=== PATIENT | female | born 1965 | race Caucasian/White ===

== ENCOUNTER → 2020-04-13 13:25 | Outpatient (CLI) | payer OTHER, SELFPAY ==
--- NOTE | ~2020-04-13 | DEXA_ITS ---
Bone Density Report Name: Faye Rowe Age: 54 Sex: Female Ethnicity: White Date of : 1965 Indication: postmenopausal osteoporosis; hysterectomy; Referring Provider: Cristi Taveras Study: Bone densitometry was performed. Exam Date: April 13, 2020 Accession number: [id number] Bone Density: Region BMD T-score Z-score Classification AP Spine (L1-L4) 0.751 -2.7 -1.6 Osteoporosis Femoral Neck (Left) 0.579 -2.4 -1.4 Osteopenia Total Hip (Left) 0.734 -1.7 -1.0 Osteopenia Femoral Neck (Right) 0.661 -1.7 -0.7 Osteopenia Total Hip (Right) 0.752 -1.6 -0.9 Osteopenia Total Hip Mean 0.743 -1.7 -1.0 Osteopenia World Health Organization criteria for BMD impression classify patients as: Normal (T-score at or above -1.0), Osteopenia (T-score between -1.0 and -2.5), or Osteoporosis (T-score at or below -2.5). 10-year Fracture Risk: FRAX not reported because: Some T-score for Spine Total or Hip Total or Femoral Neck at or below -2.5 Previous Exams: Region Exam Age BMD T-score BMD Change BMD Change Date g/cm2 vs Baseline vs Previous AP Spine(L1-L4) 04/13/2020 54 0.751 -2.7 -0.025* -0.025* 11/16/2015 50 0.776 -2.5 Total Hip(Left) 04/13/2020 54 0.734 -1.7 0.014 0.014 11/16/2015 50 0.720 -1.8 Total Hip(Right) 04/13/2020 54 0.752 -1.6 -0.008 -0.008 11/16/2015 50 0.760 -1.5 *Denotes significance at 95% confidence level, LSC for AP Spine = 0.022 g/cm2, LSC for Total Hip = 0.027 g/cm2 Clinical Information Provided by Patient: Has the following medical conditions: Hysterectomy Patient maximum height was 63 Menopause Age: 45 No regular weight bearing exercise Drinks caffeinated beverages Onset of menses at age 13 Number of children 2 Impression: The patient has osteoporosis, based on the Total Spine T-score. The BMD for the AP Spine(L1-L4) decreased, changing by -0.025 since the last DXA exam. Discussion: INCREASED RISK OF FRACTURE. BONE DENSITY IS UNDESIRABLY LOW AT ONE OR MORE SKELETAL SITES, CONSISTENT WITH POSTMENOPAUSAL OSTEOPOROSIS. This patient's lowest T-score meets the World Health Organization's (WHO) criteria for osteoporosis at one or more sites (T-score -2.5 or below). In untreated patients, the risk of osteoporotic fracture increases approximately two-fold for each 1.0 SD decrease in T-score. Low bone density is not the only risk factor for fracture; also consider factors such a
== END ==
PROVIDERS: PCP Family Medicine; Visit Provider Family Medicine
DX: N95.1 Menopausal and female climacteric states (principal); M81.0 Age-related osteoporosis without current pathological fracture; M16.0 Bilateral primary osteoarthritis of hip
CPT/HCPCS: 77080

== ENCOUNTER → 2020-11-25 15:33 | Outpatient (CLI) | payer OTHER, SELFPAY ==
--- NOTE | ~2020-11-25 | XR_ITS ---
EXAMINATION: XR foot LT 2V, XR toe 1st LT min 2V DATE: 11/25/2020 15:55 INDICATION: Left great toe pain and swelling at the metatarsophalangeal joint. TECHNIQUE: 1. Dorsoplantar and lateral views of the left foot were obtained. 2. Dorsal plantar, oblique and lateral views of the left great toe were obtained. COMPARISON: None. FINDINGS: Alignment is normal. No fracture. Polyarticular osteoarthritis, moderate severity at the left first m etatarsophalangeal and second distal interphalangeal joint, mild to moderate at the calcaneocuboid glenroy int and mild at multiple tarsal metatarsal and remaining interphalangeal joints. No cortical erosions or periosteal reaction. Soft tissues are unremarkable. IMPRESSION: 1. Mild to moderate polyarticular osteoarthritis in the left foot most prominent at the first metatar sophalangeal and second distal interphalangeal joints. Reviewed, dictated and finalized at location A. IMPRESSION: 1. Mild to moderate polyarticular osteoarthritis in the left foot most prominen t at the first metatarsophalangeal and second distal interphalangeal joints.
== END ==
PROVIDERS: PCP Family Medicine; Visit Provider Physician Assistant
DX: M79.675 Pain in left toe(s) (principal); M19.072 Primary osteoarthritis, left ankle and foot
CPT/HCPCS: 73620; 73660

== ENCOUNTER 2021-06-11 00:30 | Day surgery (SDC) | payer OTHER, SELFPAY ==
[2021-05-27 13:24] VITALS: BMI 25.0
--- NOTE | 2021-06-10 16:28 | PM.HPGS ---
History of Present Illness History of Present Illness Consent: Risks, benefits, and alternatives have been discussed and questions answered. Patient agrees to proceed with procedure. Chief complaint: hx of colon polyps, neoplasm screening Narrative: Faye Rowe is a 55 year old female referred for colon cancer screening. She had an adenomatous polyp removed 5 years ago Review of Systems Review of Systems: All systems reviewed & are unremarkable except as noted in HPI and below PMFSH Past Medical History Medical History Arthritis Mixed hyperlipidemia Family History Family History Father Hypertension Mother Hypertension Family history of macular degeneration Sibling Hypertension Social History Social History Smoking status: Former smoker Tobacco type: cigarettes Second hand tobacco smoke exposure: No Smoking end date: 04/17/90 Alcohol intake: current Drinks per week: 1 Substance use: never Substance use type: does not use Living arrangements: with family Gender identity (if verbalized by the patient): Female Spiritual care concerns: No Meds Home Medications and Allergies Home Medications Medication Instructions Recorded Confirmed Type paroxetine HCl 20 mg tablet 20 mg PO DAILY 03/11/19 05/27/21 History rosuvastatin 10 mg tablet 10 mg PO DAILY #90 tablet 02/24/21 05/27/21 Rx Allergies Allergy/AdvReac Type Severity Reaction Status Date / Time No Known Allergies Allergy unk Uncoded 06/11/21 10:10 Exam Resp: Auscultation: clear to auscultation bilaterally Cardio: Rate: regular rate Rhythm: regular rhythm GI: GI Palp: Yes Soft to palpation and No Tenderness to palpation present (GI) Assessment and Plan Assessment and plan (1) Colon cancer screening: Code(s): Z12.11 - Encounter for screening for malignant neoplasm of colon Status: Acute Assessment and Plan: Colonoscopy with possible biopsy or polypectomy or cautery or injection of substances.
[2021-06-11 10:11] VITALS: BP 126/75; PULSE 97; RESP 16; TEMP 37; O2SAT 100
[2021-06-11] MEDS: LACTATED RINGERS 1,000 ML 150 ML IV CONT (10:20)
--- NOTE | 2021-06-11 10:24 | WPDANESEPPF ---
Anes - Initial Pre Proc Eval Procedure: Operation Date: 06/11/21 11:00 Proposed Procedures p Screening Colonoscopy - Ricardo Haque MD Date/Time: 06/11/21 10:24 Surgeon: Ricardo Haque MD Pre Op Diagnosis: hx of colon polyps, neoplasm screening Patient Data Age: 55 Gender: F Height: 1.6 m Weight: 67.1 kg Last Vital Signs Temp 37.0 C 06/11/21 10:11 Pulse 97 06/11/21 10:11 Resp 16 06/11/21 10:11 BP 126/75 06/11/21 10:11 Pulse Ox 100 06/11/21 10:11 Allergies Allergy/AdvReac Type Severity Reaction Status Date / Time No Known Allergies Allergy unk Uncoded 06/11/21 10:10 Home Medications Medication Instructions Recorded Confirmed Type paroxetine HCl 20 mg tablet 20 mg PO DAILY 03/11/19 05/27/21 History rosuvastatin 10 mg tablet 10 mg PO DAILY #90 tablet 02/24/21 05/27/21 Rx Patient hx anesthesia problems: none Family hx anesthesia problems: none Results Review: All pre-operative results and documents have been reviewed as part of the pre-operative evaluation. [facility] Past Medical History Medical History Arthritis Mixed hyperlipidemia Family History Family History Father Hypertension Mother Hypertension Family history of macular degeneration Sibling Hypertension Social History Social History Smoking status: Former smoker Tobacco type: cigarettes Second hand tobacco smoke exposure: No Smoking end date: 04/17/90 Alcohol intake: current Drinks per week: 1 Substance use: never Substance use type: does not use Living arrangements: with family Gender identity (if verbalized by the patient): Female Spiritual care concerns: No Anes - Eval Final PreProcedure Day of Procedure 06/11/21 10:24 Patient weight: normal Heart: regular rate and rhythm Lungs: clear to auscultation Airway: Mallampati scale class II Neurological: alert and oriented Last oral intake: >/= 8 hours ASA classification: II Emergent: no Anesthetic plan: proceed Anesthesia type and monitoring: general GIVS and standard monitoring Results Review: All pre-operative results and documents have been reviewed as part of the pre-operative evaluation. Informed Consent: The patient's anesthetic plan and its attendant risks and benefits were discussed with the patient/family/POA. Questions were solicited and answers provided to the satisfaction of the patient/family/POA.
[2021-06-11 11:17] VITALS: BP 84/48; PULSE 83; RESP 23; O2SAT 97
[2021-06-11 11:27] VITALS: BP 96/62; PULSE 79; RESP 16; O2SAT 99
[2021-06-11 11:37] VITALS: BP 110/69; PULSE 76; RESP 16; O2SAT 99
== END 2021-06-11 11:56 | disposition home or self-care (01) ==
PROVIDERS: PCP Family Medicine; Visit Provider Internal Medicine Gastroenterology
PROC: 0DJD8ZZ Inspection of Lower Intestinal Tract, Via Natural or Artificial Opening Endoscopic (ICD-10-PCS; CPT 45378; principal; 2021-06-11 11:00)
DX: Z12.11 Encounter for screening for malignant neoplasm of colon (principal); Z86.010 Personal history of colon polyps; K64.8 Other hemorrhoids; M19.90 Unspecified osteoarthritis, unspecified site; E78.2 Mixed hyperlipidemia; Z87.891 Personal history of nicotine dependence
CPT/HCPCS: 45378; J2704; J7120

== ENCOUNTER → 2021-06-17 10:14 | Outpatient (CLI) | payer OTHER, SELFPAY ==
--- NOTE | ~2021-06-17 | MM_ITS ---
EXAMINATION: MM screening [facility] BI w lexie HISTORY: Screening mammogram TECHNIQUE: Craniocaudal and mediolateral oblique 3-D tomosynthesis images were obtained and synthetic 2-D images were generated. CAD analysis was submitted and interpreted. COMPARISON: 01/26/2018, 11/13/2012, 06/09/2009 BREAST PARENCHYMAL COMPOSITION: The breasts are heterogeneously dense, which may obscure small masses . FINDINGS: There is no evidence of suspicious mass, calcification, or architectural distortion to sugg est malignancy in either breast. There has been no suspicious interval change. IMPRESSION: 1. No mammographic evidence of malignancy. 2. Recommend routine screening mammography in one year. BI-RADS Category 1: Negative Reviewed, dictated and finalized at location A. CHECKER
== END ==
PROVIDERS: Visit Provider Advanced Practice Midwife
DX: Z12.31 Encounter for screening mammogram for malignant neoplasm of breast (principal)
CPT/HCPCS: 77063; 77067

== ENCOUNTER 2021-12-15 11:12 | Emergency (ER) | payer OTHER, SELFPAY ==
--- NOTE | ~2021-12-15 | XR_ITS ---
XR finger 2nd LT min 2V DATE: 12/15/2021 12:39 INDICATION: Laceration, injury at distal second digit TECHNIQUE: AP and lateral views COMPARISON: 11/27/2015 left FINDINGS: Distal lateral soft tissue laceration. No radiopaque soft tissue foreign body. No fracture or dislocation, periosteal reaction or bone destruction. Mild osteoarthritis at the distal interphalangeal joint. There is osteoarthritic change at the first carpometacarpal joint and mild osteophyte is at first and third metacarpophalangeal joints. IMPRESSION: Distal lateral second digit soft tissue laceration; no radiopaque foreign body No fracture or dislocation Polyarticular osteoarthritis Reviewed, dictated and finalized at location B. IMPRESSION: Distal lateral second digit soft tissue laceration; no radiopaque f oreign body No fracture or dislocation Polyarticular osteoarthritis
[2021-12-15 11:29] VITALS: BP 130/82; PULSE 104; RESP 18; TEMP 36.5; O2SAT 98
--- NOTE | 2021-12-15 11:40 | ED.WOUNDLAC ---
HPI - Wound/Laceration General Chief Complaint: Wound/Laceration Stated Complaint: left index finger cut with yard tool Time Seen by Provider: 12/15/21 11:40 Source: patient and family Mode of arrival: ambulatory Limitations: no limitations History of Present Illness HPI narrative: The patient is a 56-year-old female presenting to the emergency department for evaluation of left second finger laceration. Patient states that she was cutting weeds at home, and has no idea how her finger became lacerated, but suspects the tool she was using must have slipped. Patient was wearing gloves. She believes she is up-to-date on her tetanus within the last 5 to 10 years but is not 100% sure. She denies any numbness or weakness. She is right-hand dominant. She reports mild burning pain at the site that is worse when she bends her finger. Patient denies other injury, lacerations or wrist pain. Related Data Home Medications Medication Instructions Recorded Confirmed paroxetine HCl 20 mg tablet (Paxil) 20 mg PO DAILY 03/11/19 07/30/21 Allergies Allergy/AdvReac Type Severity Reaction Status Date / Time No Known Allergies Allergy unk Uncoded 12/15/21 11:31 [facility] Past Medical History Medical History Arthritis Mixed hyperlipidemia Family History Family History Father Hypertension Mother Hypertension Family history of macular degeneration Sibling Hypertension Social History Social History Smoking status: Former smoker Tobacco type: cigarettes Second hand tobacco smoke exposure: No Smoking end date: 04/17/90 Alcohol intake: current Drinks per week: 1 Substance use: never Substance use type: does not use Gender identity (if verbalized by the patient): Female Spiritual care concerns: No Course Vital Signs Vital signs: Vital Signs Temperature 36.5 C 12/15/21 11:29 Pulse Rate 104 H 12/15/21 11:29 Respiratory Rate 18 12/15/21 11:29 Blood Pressure 130/82 12/15/21 11:29 Pulse Oximetry 98 12/15/21 11:29 Oxygen Delivery Room Air 12/15/21 11:29 Temperature 36.5 C 12/15/21 11:29 Pulse Rate 104 H 12/15/21 11:29 Respiratory Rate 18 12/15/21 11:29 Blood Pressure 130/82 12/15/21 11:29 Pulse Oximetry 98 12/15/21 11:29 Oxygen Delivery Room Air 12/15/21 11:29 Procedures Laceration Laceration 1: Date: 12/15/21 Time: 13:10 Site: other (left second digit) Side (If applicable): left Size (cm): 1 Description: irregular Depth: simple, single layer Local Anesthetic: lidocaine 1% Amount of anesthesia used (mL): 3 Pre-repair: irrigated extensively ====== Skin Level ====== Skin layer closed with: prolene Size (cm): 5-0 Number of sutures: 4 Technique: simple, interrupted ====== Subcutaneous Layer ====== ====== Muscle Layer ====== ====== Tendon Layer ====== MDM - Wound/Laceration MDM Narrative Medical decision making narrative: Patient presenting for evaluation of left finger pain with laceration to distal left finger. Patient is neurovascularly intact. There had to be some revisions made to wound edges. Otherwise, no deep tissue involvement. Radiographic imaging is reassuring. Wound was irrigated extensively. Sutures were placed. Tetanus was updated. Discharged home with splint for protection, wound care instructions. Differential Diagnosis Differential diagnosis: Likely laceration, avulsion of skin and other (fracture, dislocation) Medical Records Attestation: I reviewed the patient's medical records. Imaging Data Radiologist's impression: ITS Impressions Finger X-Ray 12/15/21 12:46 IMPRESSION: Distal lateral second digit soft tissue laceration; no radiopaque foreign body No fractur
[2021-12-15] MEDS: TETANUS,DIPHTHERIA,AC PERTUSSIS ADULT (0.5 ML) BOOSTRIX IM (13:05)
[2021-12-15 13:24] VITALS: BP 150/98; PULSE 79; RESP 16; O2SAT 99
== END 2021-12-15 13:25 | disposition home or self-care (01) ==
PROVIDERS: Emergency Provider Emergency Medicine; PCP Family Medicine
DX: S61.211A Laceration without foreign body of left index finger without damage to nail, initial encounter (principal); Z23 Encounter for immunization; E78.2 Mixed hyperlipidemia; Z87.891 Personal history of nicotine dependence; M19.042 Primary osteoarthritis, left hand; W27.1XXA Contact with garden tool, initial encounter; Y93.H2 Activity, gardening and landscaping
CPT/HCPCS: 12001; 73140; 90471; 90715; 99283

== ENCOUNTER 2022-03-29 09:58 | Outpatient (CLI) | payer OTHER, SELFPAY ==
--- NOTE | ~2022-03-29 | DEXA_ITS ---
Bone Density Report Name: TOD CLANCY Age: 56 Sex: Female Ethnicity: White Date of : 1965 Indication: postmenopausal; screening for osteoporosis; hysterectomy; Referring Provider: JORGE AUGUSTIN Study: Bone densitometry was performed. Exam Date: March 29, 2022 Accession number: [id number] Bone Density: Region BMD T-score Z-score Classification AP Spine(L1-L4) 0.837 -1.9 -0.7 Osteopenia Femoral Neck (Left) 0.603 -2.2 -1.1 Osteopenia Total Hip (Left) 0.800 -1.2 -0.4 Osteopenia Femoral Neck (Right) 0.731 -1.1 0.1 Osteopenia Total Hip (Right) 0.831 -0.9 -0.1 Normal Total Hip Mean 0.816 -1.1 -0.3 Osteopenia World Health Organization criteria for BMD impression classify patients as: Normal (T-score at or above -1.0), Osteopenia (T-score between -1.0 and -2.5), or Osteoporosis (T-score at or below -2.5). 10-year Fracture Risk(1): Major Osteoporotic Fracture 8.8% Hip Fracture 1.2% Reported Risk Factors: [place] (), Neck BMD=0.603, BMI=27.2 (1) FRAX(R) Version 3.08. Fracture probability calculated for an untreated patient. Fracture probability may be lower if the patient has received treatment. Clinical Information Provided by Patient: Has used the following medications: Prolia (i.e. denosumab), Calcium Has the following medical conditions: Hysterectomy Patient maximum height was 63.5 Menopause Age: 46 No regular weight bearing exercise Drinks caffeinated beverages Onset of menses at age 12 Number of children 2 Impression: The patient has low bone mass, based on the Left Femoral Neck T-score. The patient has an estimated ten-year risk of hip fracture of 1.2% and an estimated ten-year risk of major fracture of 8.8%, based on the WHO FRAX algorithm. Discussion: BONE DENSITY IS LOW AT ONE OR MORE SKELETAL SITES. This patient's lowest T-score is low at one or more skeletal sites. It meets the World Health Organization's (WHO) criteria for ?low bone mass? (T-score between -1.0 and -2.5). The patient's 10-year risk of fracture as calculated by FRAX is less than the threshold where pharmacological therapy is recommended by the National Osteoporosis Foundation (NOF). However, all treatment decisions require clinical judgment and consideration of individual patient factors, including patient preferences, comorbidities, previous drug use, risk factors not captured in the FRAX model (e.g., frailty, falls, vitamin D deficiency, increased bone turnover, interval significant decline in bone density) and possible under or overestimation of fracture risk by FRAX. The patient should follow a healthful lifestyle (good nutrition with adequate calcium and vitamin D, and appropriate weight-bearing exercise). Follow-Up: Consider repeating this study in 2 to 3 years to reassess th
== END 2022-03-29 09:59 | disposition home or self-care (01) ==
PROVIDERS: PCP Family Medicine; Visit Provider Family Medicine
DX: Z78.0 Asymptomatic menopausal state (principal); M85.89 Other specified disorders of bone density and structure, multiple sites
CPT/HCPCS: 77080

== ENCOUNTER 2022-06-07 14:54 | Outpatient (CLI) | payer OTHER, SELFPAY ==
--- NOTE | ~2022-06-07 | XR_ITS ---
EXAMINATION: XR chest 2V Exam Date/Time: 06/07/2022 15:00 ANALYTICAL LABORATORY TECHNICIAN HISTORY: R05.9 - Cough, F/U PNEUMONIA Comparison: None available. RESULT: Lines, tubes, and devices: None. Lungs and pleura: Calcified pulmonary granulomas. Mild biapical pleural scarring and hilar retractio n. Cardiomediastinal silhouette: Calcified hilar and mediastinal lymph nodes. Other: No acute osseous or upper abdominal finding. IMPRESSION: No acute cardiopulmonary process. Reviewed, dictated and finalized at location K. YTICAL LABORATORY TECHNICIAN
== END 2022-06-07 14:55 | disposition home or self-care (01) ==
LOC: ANHIMG 14:59
PROVIDERS: PCP Family Medicine; Visit Provider Physician Assistant
DX: R50.9 Fever, unspecified (principal); R05.9 Cough, unspecified
CPT/HCPCS: 71046

== ENCOUNTER 2024-01-16 14:13 | Outpatient (CLI) | payer OTHER, SELFPAY ==
--- NOTE | ~2024-01-16 | MM_ITS ---
EXAMINATION: MM screening [facility] BI w lexie HISTORY: Screening TECHNIQUE: Craniocaudal and mediolateral oblique 3-D tomosynthesis images were obtained and synthetic 2-D images were generated. CAD analysis was submitted and interpreted. COMPARISON: Comparison to multiple prior studies sequentially, with oldest reviewed study dated 01/15. BREAST PARENCHYMAL COMPOSITION: Not dense: There are scattered areas of fibroglandular density. FINDINGS: There are benign-appearing left breast calcifications. There is no evidence of suspicious m ass, calcification, or architectural distortion to suggest malignancy in either breast. There has bee n no suspicious interval change. IMPRESSION: 1. No mammographic evidence of malignancy. 2. Recommend routine screening mammography in one year. BI-RADS Category 1: Negative Reviewed, dictated and finalized at location B.
== END 2024-01-16 14:14 | disposition home or self-care (01) ==
PROVIDERS: PCP Family Medicine; Visit Provider Nurse Practitioner Obstetrics & Gynecology
DX: Z12.31 Encounter for screening mammogram for malignant neoplasm of breast (principal)
CPT/HCPCS: 77063; 77067

== ENCOUNTER 2024-01-19 10:35 | Outpatient (CLI) | payer OTHER, SELFPAY ==
--- NOTE | ~2024-01-19 | XR_ITS ---
Left Shoulder Technique: AP and axillary views were obtained. Clinical History: Pain Findings: No fracture or dislocation is seen. Osseous alignment is anatomic. The glenohumeral and acr omioclavicular joint spaces are preserved. Soft tissues are unremarkable. Calcified left hilar lymph nodes noted. Impression: Unremarkable left shoulder radiographs. Reviewed, dictated and finalized at location . Impression: Unremarkable left shoulder radiographs.
== END 2024-01-19 10:36 | disposition home or self-care (01) ==
PROVIDERS: PCP Family Medicine; Visit Provider Student in an Organized Health Care Education/Training Program
DX: M25.512 Pain in left shoulder (principal)
CPT/HCPCS: 73030

== ENCOUNTER 2024-03-08 12:21 | Outpatient (CLI) | payer OTHER, SELFPAY ==
--- NOTE | ~2024-03-08 | XR_ITS ---
EXAMINATION: XR hand BI arthritis min 3V DATE: 03/08/2024 12:34 INDICATION: Unspecified osteoarthritis, unspecified site. TECHNIQUE: 4 views of right hand and 4 views of left hand on a total of 7 radiographs were obtained. COMPARISON: Bilateral hand radiographs 11/27/2015 FINDINGS: RIGHT HAND: Alignment is normal. No fracture. There is moderate osteoarthritis of first carpal metaca rpal joint, mild osteoarthritis of third and fourth metacarpophalangeal joints and some of the interp halangeal joints, moderate osteoarthritis of fifth proximal interphalangeal joint and fourth and fift h distal interphalangeal joints, and severe osteoarthritis of second and third distal interphalangeal joints. LEFT HAND: Alignment is normal. No fracture. There is mild osteoarthritis of radiolunate joint, moder ate osteoarthritis of triscaphe joint and first carpometacarpal joint, mild osteoarthritis of some of the interphalangeal joints, severe osteoarthritis of fifth distal interphalangeal joint, and moderat e osteoarthritis of third distal interphalangeal joint. IMPRESSION: 1. Polyarticular osteoarthritis. Reviewed, dictated and finalized at location A. TH LEAD
== END 2024-03-08 12:22 | disposition home or self-care (01) ==
PROVIDERS: PCP Family Medicine; Visit Provider Physician Assistant Medical
DX: M18.0 Bilateral primary osteoarthritis of first carpometacarpal joints (principal); M19.041 Primary osteoarthritis, right hand; M19.042 Primary osteoarthritis, left hand
CPT/HCPCS: 73130